=== PATIENT | female | born 1960 | race Caucasian/White ===

== ENCOUNTER 2024-03-07 09:49 | Emergency (ER) | payer BC, OTHER ==
[~2024-03-07] VITALS: Ht 175.3 cm; Wt 99.5 kg
[~2024-03-07 09:49] MED LIST: benadryl; estradiol; medroxyprogesterone; prednisone
[2024-03-07] MEDS: diltiazem 5mg/ml 5ml inj. IV ONE (10:30)
[2024-03-07] MEDS: diltiazem 30mg tablet PO STA (10:30)
[2024-03-07 10:36] LABS: EOSINOPHILS # (AUTO) 0.2 X10'3 (0-0.9); MONOCYTES # (AUTO) 0.4 X10'3 (0-0.9)
[2024-03-07 10:38] LABS: BASOPHILS % (AUTO) 0.6 % (0-1); EOSINOPHILS % (AUTO) 2.5 % (0-6); HEMOGLOBIN 13.9 g/dl (12.0-16.0); LYMPHOCYTES % (AUTO) 31.2 % (21-51); MEAN CORPUSCULAR HEMOGLOBIN 28.6 PG (27.0-31.0); MEAN CORPUSCULAR HGB CONC 33.2 g/dL (33.0-36.5); MEAN CORPUSCULAR VOLUME 86.2 FL (78-98); MEAN PLATELET VOLUME 9.1 FL (7.4-10.4); MONOCYTES % (AUTO) 5.5 % (2-12); NEUTROPHILS # (AUTO) 3.9 X10'3 (1.8-7.7); NEUTROPHILS % (AUTO) 60.2 % (42-75); PLATELET COUNT 181 X10'3 (140-440); RED BLOOD COUNT 4.87 X10'6 (4.20-5.60); RED CELL DISTRIBUTION WIDTH 13.3 % (11.5-14.5); WHITE BLOOD COUNT 6.5 X10'3 (4.5-11.0)
[2024-03-07 11:11] LABS: ALBUMIN 3.9 G/DL (3.4-5.0); ANION GAP 11 (8-16); BLOOD UREA NITROGEN 22 MG/DL (7-18); BUN/CREATININE RATIO 28.6 (10.0-20.0); CALCIUM 9.2 MG/DL (8.5-10.1); CHLORIDE 104 MMOL/L (99-107); CREATININE 0.77 MG/DL (0.40-0.90); GLUCOSE 125 MG/DL (70-104); POTASSIUM 3.7 MMOL/L (3.5-5.1); PRO BRAIN NATRIURETIC PEPTIDE 88 PG/ML (0-125); SODIUM 139 MMOL/L (135-145); TOTAL CARBON DIOXIDE 23.6 MMOL/L (24-32); eCRCL 76 ML/MIN; eGFR 75 ML/MIN
[2024-03-07] MEDS ORDERED: RIVA20TA PO (11:27)
[2024-03-07] MEDS ORDERED: DILT180C90 PO (11:27)
[2024-03-07 11:31] VITALS: BP 136/74; PULSE 80; RESP 15; TEMP 98; O2SAT 94
== END 2024-03-07 11:46 | disposition home or self-care (01) ==
LOC: ER 09:50
DX: I48.20 Chronic atrial fibrillation, unspecified (principal); R42 Dizziness and giddiness; R51.9 Headache, unspecified; E78.00 Pure hypercholesterolemia, unspecified; I10 Essential (primary) hypertension; J45.909 Unspecified asthma, uncomplicated; Z91.041 Radiographic dye allergy status; Z88.1 Allergy status to other antibiotic agents; Z88.2 Allergy status to sulfonamides; Z79.899 Other long term (current) drug therapy
CPT/HCPCS: 71045; 80048; 83880; 84484; 85025; 93005; 96374; 99285; J3490